=== PATIENT | male | born 1935 | race Caucasian/White ===

== ENCOUNTER 2019-02-28 09:26 | Emergency (ER) | payer MEDICARE, OTHER ==
[2019-02-28 10:12] VITALS: BP 149/79
--- NOTE | 2019-02-28 10:18 | ERPHSYRPT ---
- History of Present Illness Time Seen by Provider: 02/28/19 09:50 Source: patient Exam Limitations: no limitations Patient Subjective Stated Complaint: "cut to R arm" Triage Nursing Assessment: pt to ED states grinding wheel cut arm last night approx 1800. no pain. no bleeding noted at this time. pt applied antibiotic ointment last night and covered with bandage. pt ambulated back to room with no assist. placed in gown and into bed. AxOx3. communciates regularly. Physician History: 83 years old male presented to the ER with right forearm laceration got accidentally with a grinding wheel around 6 PM last night. There was mild bleeding initially but stopped after applying pressure. He applied antibiotic ointment and Band-Aid but still had some opening. There is mild pain initially but currently no pain bleeding or oozing. no difficulty movements of wrist/finger/hand.Tetanus shot almost 5 years ago. Occurred: yesterday (1800) Method of Injury: incised (with a grinding wheel) Quality: dullness Severity of Pain-Max: mild Severity of Pain-Current: none Allergies/Adverse Reactions: No Known Drug Allergies Allergy (Verified 02/28/19 10:12) Home Medications: Aspir 81 81 mg PO DAILY 02/13/12 [History] Celebrex 200 mg PO DAILY 02/13/12 [History] Flomax 0.4 MG 0.4 mg PO DAILY 02/13/12 [History] Levothyroxine Sodium 125 mg PO DAILY 02/13/12 [History] Metoprolol Tartrate 100 mg PO BID 02/13/12 [History] Nexium 40 mg PO DAILY 02/13/12 [History] Zetia 10 MG 10 mg PO DAILY 02/13/12 [History] Escitalopram Oxalate 10 mg [Lexapro 10 MG] 10 mg PO DAILY 09/24/14 [History] Nitroglycerin 0.4 mg Tablet [Nitrostat 0.4 MG Tablet] 0.4 mg SL UD PRN [History] Hx Tetanus, Diphtheria Vaccination/Date Given: No (pt states approx 5 yrs since last tetanus) Hx Influenza Vaccination/Date Given: Yes Hx Pneumococcal Vaccination/Date Given: No Immunizations Up to Date: No - Review of Systems Constitutional: No Symptoms Eyes: No Symptoms Ears, Nose, & Throat: No Symptoms Respiratory: No Symptoms Cardiac: No Symptoms Abdominal/Gastrointestinal: No Symptoms Musculoskeletal: Injury, Other Skin: Skin Lesions, Other Neurological: No Symptoms Psychological: No Symptoms Endocrine: No Symptoms Hematologic/Lymphatic: No Symptoms - Past Medical History Pertinent Past Medical History: Yes Neurological History: No Pertinent History ENT History: No Pertinent History Cardiac History: Other Respiratory History: No Pertinent History Endocrine Medical History: No Pertinent History Musculoskeletal History: No Pertinent History GI Medical History: Ulcer History: No Pertinent History Psycho-Social History: Anxiety Male Reproductive Disorders: No Pertinent History Other Medical History: pacemaker/difib - Past Surgical History Past Surgical History: Yes Gastrointestinal: Appendectomy, Cholecystectomy, Hernia Repair, Other Genitourinary: No Pertinent History Musculoskeletal: Other Male Surgical History: No Pertinent History Other Surgical History: pacemaker/defib placement - Social History Smoking Status: Never smoker Exposure to second hand smoke: No Drug Use: none Patient Lives Alone: No - Nursing Vital Signs Nursing Vital Signs: Initial Vital Signs Temperature 98.1 F 02/28/19 10:02 Pulse Rate 86 02/28/19 10:02 Respiratory Rate 20 02/28/19 10:02 Blood Pressure 149/79 02/28/19 10:02 O2 Sat by Pulse Oximetry 99 02/28/19 10:02 Pain Scale Pain Intensity 0 - Physical Exam General Appearance: no apparent distress Eyes, Ears, Nose, Throat Exam: normal ENT inspection Neck Exam: normal inspection, non-tender Cardiovascular/Respiratory Exam: normal breath sounds, regular rate/rhythm Back Exam: normal inspection Shoulder Exam: normal inspection Elbow/Forearm Exam: normal ROM, soft tissue tenderness, No bone tenderness Wrist Exam: normal inspection, non-tender, no evidence of injury, normal ROM, swelling (2cm laceration skin deep with no active bleed/ooze, edges scabbed. minimal tenderness with pressure sround the wound. intact distal NV) Hand Exam: normal inspection, non-tender, no evidence of injury Neuro/Tendon Exam: normal sensation Mental Status Exam: alert, oriented x 3, cooperative Skin Exam: normal color SpO2 Interpretation: normal SpO2: 99 O2 Delivery: Room Air Procedures - Laceration/Wound Repair Right Upper Distal Other Wound Location: lower arm Wound Length (cm): 2 Wound's Depth, Shape: superficial Wound Explored: no foreign body noted Irrigated: Yes Hibiclens Prep: Yes Wound Repaired With: Steri-strips Number of Sutures: 2 Layer Closure?: No Sterile Dressing Applied?: Yes Splint Applied?: No Sling Applied?: No - Course Nursing assessment & vital signs reviewed: Yes Ordered Tests: Active Orders 24 hr Category Date Time Status Wound Care STAT Care 02/28/19 10:12 Active - Progress Progress: improved, re-examined Progress Note: 02/28/19 10:22 it is almost 14 hours since hhe got laceration. Edges are already scabbing. We will not suture. Steri-Strips are applied. Discussed signs symptoms symptoms are worsening/infection/discharge needing to come to ER or outpatient followup which patient seems understanding. He is up-to-date with tetanus. Counseled pt/family regarding: diagnosis, need for follow-up - Departure Departure Disposition: Home Clinical Impression: Laceration of right forearm Qualifiers: Encounter type: initial encounter Qualified Code(s): S51.811A - Laceration without foreign body of right forearm, initial encounter Condition: Stable Critical Care Time: No Referrals: [facility] [Primary Care Provider] - Instructions: Laceration Repair With Glue (DC) Additional Instructions: keep it clean. Followup with primary care for evaluation in 2-3 days. Watch for signs of infection like redness discharge/swelling/fever chills etc. and return to the ER
[2019-02-28 10:58] VITALS: PULSE 88
[2019-02-28 11:04] VITALS: O2SAT 99
== END 2019-02-28 10:50 | disposition home or self-care (01) ==
LOC: ED 09:26
DX: S51.811A Laceration without foreign body of right forearm, initial encounter (principal); W31.89XA Contact with other specified machinery, initial encounter; Z79.899 Other long term (current) drug therapy
CPT/HCPCS: 12001; 99283

== ENCOUNTER 2021-09-06 21:00 | Emergency (ER) | payer MEDICARE, OTHER ==
[2021-09-06] MEDS ORDERED: XYLOCAINE 1% HCL 20 ML MDV IJ ONE (21:07)
[2021-09-06] MEDS ORDERED: Adacel Vial IM ONE ×2 (21:07→21:28)
--- NOTE | 2021-09-06 21:07 | ERPHSYRPT ---
- History of Present Illness Time Seen by Provider: 09/06/21 21:07 Source: patient Exam Limitations: no limitations Physician History: This is a right-handed 86-year-old white male patient has a history of gastroesophageal reflux disease, hypothyroidism, elevated cholesterol and hypertension and tripped over a post in his yard landing on his right hand and suffering laceration to the ulnar aspect of the right palm. He has full range of motion and has full sensation. His tetanus status is not up-to-date. Occurred: just prior to arrival Method of Injury: fell Severity of Pain-Max: mild Severity of Pain-Current: mild Extremities Pain Location: hand: right Modifying Factors: Improves With: nothing Associated Symptoms: none Allergies/Adverse Reactions: No Known Drug Allergies Allergy (Verified 09/06/21 21:17) Home Medications: Aspir 81 81 mg PO DAILY 02/13/12 [History] Celebrex 200 mg PO DAILY 02/13/12 [History] Flomax 0.4 MG 0.4 mg PO DAILY 02/13/12 [History] Levothyroxine Sodium 125 mg PO DAILY 02/13/12 [History] Metoprolol Tartrate 100 mg PO BID 02/13/12 [History] Nexium 40 mg PO DAILY 02/13/12 [History] Zetia 10 MG 10 mg PO DAILY 02/13/12 [History] Escitalopram Oxalate [Lexapro 10 MG] 10 mg PO DAILY 09/24/14 [History] Nitroglycerin 0.4 mg Tablet [Nitrostat 0.4 MG Tablet] 0.4 mg SL UD PRN 09/24/14 [History] Hx Tetanus, Diphtheria Vaccination/Date Given: No (pt states approx 5 yrs since last tetanus) Hx Influenza Vaccination/Date Given: Yes Hx Pneumococcal Vaccination/Date Given: No Travel Risk - International Travel Have you traveled outside of the country in past 3 weeks: No - Coronavirus Screening Are you exhibiting any of the following symptoms?: No Close contact with a COVID-19 positive Pt in past 14-21 Days: No - Review of Systems Constitutional: No Symptoms Eyes: No Symptoms Ears, Nose, & Throat: No Symptoms Respiratory: No Symptoms Cardiac: No Symptoms Abdominal/Gastrointestinal: No Symptoms Genitourinary Symptoms: No Symptoms Musculoskeletal: Injury (Right hand) Skin: Other (Laceration right hand) Neurological: No Symptoms Psychological: No Symptoms Endocrine: No Symptoms Hematologic/Lymphatic: No Symptoms Immunological/Allergic: No Symptoms All Other Systems: Reviewed and Negative - Past Medical History Pertinent Past Medical History: Yes Neurological History: No Pertinent History ENT History: No Pertinent History Cardiac History: Arrhythmia, High Cholesterol, Hypertension, Other Respiratory History: COPD Endocrine Medical History: Hypothyroidism Musculoskeletal History: No Pertinent History GI Medical History: Ulcer History: No Pertinent History Psycho-Social History: Anxiety Male Reproductive Disorders: No Pertinent History Other Medical History: ANXIETY. SX HX: ARTHROSCOPIC SURGERY RIGHT KNEE, HERNIA REPAIRS SUNI INGUINAL, CHOLECYSTECTOMY, APPENDECTOMY, RC REPAIR RIGHT SHOULDER, GASTRIC ULCER REPAIR, "REROUTED" INTESTINES, CERVICAL FUSION, SURGERY ON BOTH ELBOWS. - Past Surgical History Past Surgical History: Yes Gastrointestinal: Appendectomy, Cholecystectomy, Hernia Repair, Other Genitourinary: No Pertinent History Musculoskeletal: Other Male Surgical History: No Pertinent History Other Surgical History: pacemaker/defib placement - Social History Smoking Status: Never smoker Exposure to second hand smoke: No Drug Use: none Patient Lives Alone: No - Nursing Vital Signs Nursing Vital Signs: Initial Vital Signs Temperature 98.1 F 09/06/21 21:07 Pulse Rate 71 09/06/21 21:07 Respiratory Rate 16 09/06/21 21:07 Blood Pressure 161/76 09/06/21 21:07 O2 Sat by Pulse Oximetry 97 09/06/21 21:07 Pain Scale Pain Intensity 3 - Physical Exam General Appearance: no apparent distress, alert, anxiety Eyes, Ears, Nose, Throat Exam: normal ENT inspection, moist mucous membranes Neck Exam: normal inspection, non-tender, supple, full range of motion Cardiovascular/Respiratory Exam: chest non-tender, no respiratory distress Abdominal Exam: non-tender Back Exam: normal inspection, normal range of motion, No CVA tenderness, No vertebral tenderness Shoulder Exam: normal inspection, non-tender, no evidence of injury, normal ROM Elbow/Forearm Exam: normal inspection, non-tender, no evidence of injury, normal ROM Wrist Exam: normal inspection, non-tender, no evidence of injury, normal ROM Hand Exam: normal ROM, laceration (Approximately 3 cm semicircular laceration/flap with full range of motion. No evidence of tendon injury. There is no evidence of foreign body. The patient is neurovascularly intact.) Neuro/Tendon Exam: normal sensation, normal motor functions, normal tendon functions, responds to pain, no evidence tendon injury Mental Status Exam: alert, oriented x 3, cooperative Skin Exam: normal color, warm, dry SpO2 Interpretation: normal O2 Delivery: Room Air Procedures - Laceration/Wound Repair Right Hand Time of Procedure: 21:40 Wound Location: Right, hand Wound Length (cm): 3 Wound's Depth, Shape: superficial, flap (Curvilinear) Wound Explored: clean (No foreign body noted. Exam was performed of bloodless field to the base) Irrigated: Yes Hibiclens Prep: Yes Anesthesia: 1% Lidocaine Volume Anesthetic (ccs): 7 Wound Repaired With: sutures Suture Size/Type: 4-0, prolene Number of Sutures: 6 Layer Closure?: No - Course Nursing assessment & vital signs reviewed: Yes Ordered Tests: Active Orders 24 hr Category Date Time Status Wound Care STAT Care 09/06/21 21:07 Active Medication Summary Discontinued Medications Generic Name Dose Route Start Last Admin Trade Name Freq PRN Reason Stop Dose Admin Bacitracin Zinc 0.9 each 09/06/21 21:08 09/06/21 21:40 Bacitracin Packet 1 Each Pckt TP 09/06/21 21:09 0.9 each STAT ONE Administration Bacitracin Zinc Confirm 09/06/21 21:40 Bacitracin Packet 1 Each Pckt Administered 09/06/21 21:41 Dose 1 each .ROUTE .STK-MED ONE Cephalexin HCl 500 mg 09/06/21 21:29 09/06/21 21:31 Cephalexin Mh500 Mg Capsule PO 09/06/21 21:30 500 mg STAT ONE Administration Cephalexin HCl Confirm 09/06/21 21:30 Cephalexin Mh500 Mg Capsule Administered 09/06/21 21:31 Dose 500 mg .ROUTE .STK-MED ONE Diphtheria/Tetanus/Acell Pertussis 0.5 ml 09/06/21 21:07 09/06/21 21:29 Tdap --Diph,Pertuss(Acell),Tet Vac/Pf 0.5 Ml Vial IM 09/06/21 21:08 0.5 ml .ONCE ONE Administration Diphtheria/Tetanus/Acell Pertussis Confirm 09/06/21 21:28 Tdap --Diph,Pertuss(Acell),Tet Vac/Pf 0.5 Ml Vial Administered 06/01/22 21:29 Dose 0.5 ml IM .STK-MED ONE Lidocaine HCl 5 ml 09/06/21 21:07 09/06/21 21:27 Lidocaine Hcl 1% 20 Ml Mdv 20 Ml Ml IJ 09/06/21 21:08 5 ml STAT ONE Administration Lidocaine HCl Confirm 09/06/21 21:15 Lidocaine Hcl 1% 20 Ml Mdv 20 Ml Ml Administered 09/06/21 21:16 Dose 5 ml .ROUTE .STK-MED ONE - Progress Progress: improved Counseled pt/family regarding: diagnosis, need for follow-up - Departure Departure Disposition: Home Clinical Impression: Laceration of right hand Condition: Stable Critical Care Time: No Referrals: [facility] [Primary Care Provider] - Follow up/PCP as directed Additional Instructions: Keep current pressure dressing in place until tomorrow evening. Tomorrow evening, may remove dressing and wash the site daily with soap and water. Blot dry use a hairdryer to dry the repair site. Reapply antibiotic ointment of choice to the repair line and cover with a bandage. Suture removal in 8 to 10 days. Use Tylenol and ibuprofen for pain control. Take your antibiotics as prescribed. Prescriptions: Cephalexin Mh 500 mg [Keflex 500 mg] 500 mg PO TID #15 cap
[2021-09-06] MEDS ORDERED: BACIGUENT PACKET TP ONE (21:08)
[2021-09-06] MEDS ORDERED: XYLOCAINE 1% HCL 20 ML MDV ONE (21:15)
[2021-09-06] MEDS ORDERED: KEFLEX 500 MG PO ONE (21:29)
[2021-09-06] MEDS ORDERED: KEFLEX 500 MG ONE (21:30)
[2021-09-06] MEDS ORDERED: BACIGUENT PACKET ONE (21:40)
[2021-09-06] MEDS ORDERED: NORCO 5/325 MG PO ONE (21:57)
[2021-09-06] MEDS ORDERED: NORCO 5/325 MG ONE (21:59)
[2021-09-06 22:04] VITALS: BP 164/77; PULSE 70; O2SAT 99
== END 2021-09-06 22:07 | disposition home or self-care (01) ==
LOC: ED 21:00
DX: S61.411A Laceration without foreign body of right hand, initial encounter (principal); W01.0XXA Fall on same level from slipping, tripping and stumbling without subsequent striking against object, initial encounter; Y92.007 Garden or yard of unspecified non-institutional (private) residence as the place of occurrence of the external cause; E78.5 Hyperlipidemia, unspecified; I10 Essential (primary) hypertension; J44.9 Chronic obstructive pulmonary disease, unspecified; Z79.899 Other long term (current) drug therapy
CPT/HCPCS: 12002; 90471; 90715; 96372; 99284; A9270-GY

== ENCOUNTER 2024-07-07 11:18 | Emergency (ER) | payer MEDICARE, OTHER ==
--- NOTE | 2024-07-07 11:22 | ERPHSYRPT ---
- History of Present Illness Time Seen by Provider: 07/07/24 11:21 Source: patient, family Exam Limitations: no limitations Physician History: This is an 88-year-old white male patient who was brought directly over to our emergency department from the pulmonology clinic visit here at the hospital secondary to a near syncopal episode. Patient was being evaluated by the liquid natural gas plant operator to discuss pulmonary nodules that were present. Patient had a near syncopal episode when they took his blood pressure his systolic blood pressure was in the 80s. Patient denies chest pain. Patient denies shortness of breath. Patient states that he frequently has these "spells". He currently denies having a headache. He has not had any visual changes. Yesterday, his son provided additional, independent history, the patient underwent battery replacement of his pacemaker/defibrillator. Patient has a history of peptic ulcer disease and this was surgically dealt with in the past. He has not been coughing up any coffee-ground emesis or bright red blood and he has not passed dark tarry stools or bright red blood rectally. He has no abdominal pain. He does see tar heel Dr. Lieberman and has a jewel bearing turner, Dr. Mei. Patient has a history of hypothyroidism, hyperlipidemia, COPD, prostate issues, depression, arrhythmia and coronary artery disease. Timing/Duration: today Severity: mild Associated Symptoms: syncope (Patient had a near syncopal episode at his liquid natural gas plant operator office but has no symptoms now.) Allergies/Adverse Reactions: No Known Drug Allergies Allergy (Verified 07/07/24 11:30) Home Medications: Albuterol Sulfate [Albuterol Sulfate Hfa] 2 puff PO Q6H PRN 07/07/24 [History] Bisoprolol Fumarate 2.5 mg PO DAILY 07/07/24 [History] Cetirizine HCl [Zyrtec] 10 mg PO DAILY 07/07/24 [History] Ezetimibe 10 mg [Zetia 10 MG] 10 mg PO HS 07/07/24 [History] Isosorbide Mononitrate 30 mg [Imdur 30 MG] 30 mg PO DAILY 07/07/24 [History] Levothyroxine Sodium 88 Mcg [Synthroid 88 Mcg] 88 mcg PO DAILY 07/07/24 [History] Rosuvastatin Calcium 10 mg PO DAILY 07/07/24 [History] Sertraline HCl [Zoloft] 100 mg PO DAILY 07/07/24 [History] Sucralfate 1 gm [Carafate 1 GM] 1 g PO DAILY 07/07/24 [History] Tamsulosin HCl 0.4 mg [Flomax 0.4 MG] 0.4 mg PO DAILY 07/07/24 [History] dilTIAZem HCL [Diltiazem ER] 120 mg PO DAILY 07/07/24 [History] Hx Tetanus, Diphtheria Vaccination/Date Given: No (pt states approx 5 yrs since last tetanus) Hx Influenza Vaccination/Date Given: Yes Hx Pneumococcal Vaccination/Date Given: No Travel Risk - International Travel Have you traveled outside of the country in past 3 weeks: No - Emerging Infectious Disease Are you exhibiting symptoms associated with any current EIDs: No - Review of Systems Constitutional: No Symptoms Eyes: No Symptoms Ears, Nose, & Throat: No Symptoms Respiratory: No Symptoms Cardiac: No Symptoms Abdominal/Gastrointestinal: No Symptoms Genitourinary Symptoms: No Symptoms Musculoskeletal: No Symptoms Skin: No Symptoms Neurological: No Symptoms Psychological: No Symptoms Endocrine: No Symptoms Hematologic/Lymphatic: No Symptoms Immunological/Allergic: No Symptoms All Other Systems: Reviewed and Negative - Past Medical History Pertinent Past Medical History: Yes Neurological History: No Pertinent History ENT History: No Pertinent History Cardiac History: Arrhythmia, Other Respiratory History: COPD Endocrine Medical History: Hypothyroidism Musculoskeletal History: No Pertinent History GI Medical History: Ulcer History: No Pertinent History Psycho-Social History: Anxiety Male Reproductive Disorders: No Pertinent History Other Medical History: NECK FUSION - Past Surgical History Past Surgical History: Yes Cardiac: Internal Defibrillator, Pacemaker Gastrointestinal: Appendectomy, Cholecystectomy, Hernia Repair, Other Genitourinary: No Pertinent History Musculoskeletal: Other Male Surgical History: No Pertinent History Other Surgical History: pacemaker/defib placement. right knee. right shoulder. neck fusion - Social History Smoking Status: Never smoker Exposure to second hand smoke: No Drug Use: none - Nursing Vital Signs Nursing Vital Signs: Initial Vital Signs Temperature 97.6 F 07/07/24 11:18 Pain Scale Pain Intensity 0 - Physical Exam General Appearance: no apparent distress, alert Eye Exam: PERRL/EOMI, eyes nml inspection Ears, Nose, Throat Exam: normal ENT inspection, moist mucous membranes Neck Exam: normal inspection, non-tender, supple, full range of motion Respiratory Exam: normal breath sounds, lungs clear, airway intact, No chest tenderness, No respiratory distress Cardiovascular Exam: regular rate/rhythm, normal heart sounds, normal peripheral pulses Gastrointestinal/Abdomen Exam: soft, normal bowel sounds, No tenderness Rectal Exam: not done Back Exam: normal inspection, normal range of motion, No CVA tenderness, No vertebral tenderness Neurologic Exam: alert, oriented x 3, cooperative, closing machine operator II-XII nml as tested, normal mood/affect, nml cerebellar function, nml station & gait, sensation nml Skin Exam: normal color, warm, dry Lymphatic Exam: No adenopathy SpO2 Interpretation: normal O2 Delivery: Room Air - Course Nursing assessment & vital signs reviewed: Yes EKG Interpreted by Me: RATE (71), NORMAL AXIS, NORMAL QRS, Other (There is prolonged NV interval. QTc is 444. There is no evidence of acute ischemia on today's twelve-lead EKG.) Ordered Tests: Active Orders 24 hr Category Date Time Status EKG-ER Only STAT Care 07/07/24 11:26 Active IV Insertion STAT Care 07/07/24 11:26 Active Pulse Oximetry (ED) STAT Care 07/07/24 11:26 Active HEAD WITHOUT CONTRAST [CT] Stat Exams 07/07/24 11:27 Completed CBC W DIFF Stat Lab 07/07/24 11:40 Completed CMP Stat Lab 07/07/24 11:40 Completed MAGNESIUM Stat Lab 07/07/24 11:40 Completed PROTIME WITH INR Stat Lab 07/07/24 11:40 Completed TROPONIN Q4H Lab 07/07/24 11:40 Completed TROPONIN Q4H Lab 07/07/24 15:30 Ordered TROPONIN Q4H Lab 07/07/24 19:30 Ordered UA W/RFX UR CULTURE Stat Lab 07/07/24 14:07 Completed Medication Summary Generic Name Dose Route Start Last Admin Trade Name Freq PRN Reason Stop Dose Admin Sodium Chloride 1,000 mls @ 100 mls/hr 07/07/24 11:30 07/07/24 13:37 Sodium Chloride 0.9% 1000 Ml IV 08/06/24 11:29 Infused .Q10H JOHAN Infusion Lab/Rad Data: Laboratory Result Diagrams 07/07/24 11:40 07/07/24 11:40 Laboratory Results 07/07/24 07/07/24 07/07/24 Range/Units 14:07 11:40 11:40 WBC (4.23-9.07) x10^3/uL RBC (4.63-6.08) x10^6/uL Hgb (13.7-17.5) g/dL Hct (40.1-51.0) % MCV (79.0-92.2) fL MCH (25.7-32.2) pg MCHC (32.3-36.5) g/dL RDW (11.6-14.4) % Plt Count (163-337) x10^3/uL MPV (9.4-12.4) fL Gran % (34.0-67.9) % Immature Gran % (Auto) (0.001-0.429) % Nucleat RBC Rel Count (0.00-0.2) % Eos # (Auto) (0.04-0.54) x10^3/uL Immature Gran # (Auto) (0.001-0.031) x10^3u/L Absolute Lymphs (auto) (1.32-3.57) x10^3/uL Absolute Monos (auto) (0.30-0.82) x10^3/uL Absolute Nucleated RBC (0.00-0.012) x10^3u/L Lymphocytes % (21.8-53.1) % Monocytes % (5.3-12.2) % Eosinophils % (0.8-7.0) % Basophils % (0.2-1.2) % Absolute Granulocytes (1.78-5.38) x10^3/uL Basophils # (0.01-0.08) x10^3/uL PT 11.2 (9.4-12.5) SECONDS INR 1.03 (0.8-3.0) Sodium (135-145) mmol/L Potassium (3.5-5.1) mmol/L Chloride (98-107) mmol/L Carbon Dioxide (22-30) mmol/L Anion Gap (5-15) MEQ/L BUN (9-20) mg/dL Creatinine (0.66-1.25) mg/dL Estimated GFR ML/MIN Glucose (74-106) mg/dL Calcium (8.4-10.2) mg/dL Magnesium (1.6-2.3) mg/dL Total Bilirubin (0.2-1.3) mg/dL AST (17-59) U/L ALT (0-50) U/L Alkaline Phosphatase (38-126) U/L Troponin I < 0.012 (0.000-0.033) ng/mL Serum Total Protein (6.3-8.2) g/dL Albumin (3.5-5.0) g/dL Urine Color Yellow (Yellow) Urine Appearance Clear (Clear) Urine pH 7.0 (4.6-8.0) Ur Specific [place] 1.015 (1.005-1.030) Urine Protein Negative (Negative) Urine Glucose (UA) Negative (Negative) mg/dL Urine Ketones Negative (Negative) Urine Blood Negative (Negative) Urine Nitrite Negative (Negative) Urine Bilirubin Negative (Negative) Urine Urobilinogen 1.0 A (0.2) mg/dL Ur Leukocyte Esterase Negative (Negative) U Hyaline Cast (Auto) NONE SEEN (0-2) /LPF Urine Microscopic RBC 3-5 (0-5) /HPF Urine Microscopic WBC 0-2 (0-5) /HPF Ur Epithelial Cells None Seen (None Seen) /HPF Urine Bacteria None Seen (None Seen) /HPF Urine Culture Reflexed NO (NO) 07/07/24 07/07/24 Range/Units 11:40 11:40 WBC 9.5 H (4.23-9.07) x10^3/uL RBC 3.06 L (4.63-6.08) x10^6/uL Hgb 9.9 L (13.7-17.5) g/dL Hct 30.9 L (40.1-51.0) % MCV 101.0 H (79.0-92.2) fL MCH 32.4 H (25.7-32.2) pg MCHC 32.0 L (32.3-36.5) g/dL RDW 13.9 (11.6-14.4) % Plt Count 255 (163-337) x10^3/uL MPV 9.5 (9.4-12.4) fL Gran % 77.6 H (34.0-67.9) % Immature Gran % (Auto) 0.7 H (0.001-0.429) % Nucleat RBC Rel Count 0.0 (0.00-0.2) % Eos # (Auto) 0.06 (0.04-0.54) x10^3/uL Immature Gran # (Auto) 0.07 H (0.001-0.031) x10^3u/L Absolute Lymphs (auto) 0.93 L (1.32-3.57) x10^3/uL Absolute Monos (auto) 1.04 H (0.30-0.82) x10^3/uL Absolute Nucleated RBC 0.00 (0.00-0.012) x10^3u/L Lymphocytes % 9.8 L (21.8-53.1) % Monocytes % 11.0 (5.3-12.2) % Eosinophils % 0.6 L (0.8-7.0) % Basophils % 0.3 (0.2-1.2) % Absolute Granulocytes 7.33 H (1.78-5.38) x10^3/uL Basophils # 0.03 (0.01-0.08) x10^3/uL PT (9.4-12.5) SECONDS INR (0.8-3.0) Sodium 137 (135-145) mmol/L Potassium 4.0 (3.5-5.1) mmol/L Chloride 105 (98-107) mmol/L Carbon Dioxide 25 (22-30) mmol/L Anion Gap 10.6 (5-15) MEQ/L BUN 23 H (9-20) mg/dL Creatinine 1.12 (0.66-1.25) mg/dL Estimated GFR 63.2 ML/MIN Glucose 128 H (74-106) mg/dL Calcium 8.6 (8.4-10.2) mg/dL Magnesium 1.8 (1.6-2.3) mg/dL Total Bilirubin 0.40 (0.2-1.3) mg/dL AST 32 (17-59) U/L ALT 35 (0-50) U/L Alkaline Phosphatase 98 (38-126) U/L Troponin I (0.000-0.033) ng/mL Serum Total Protein 5.6 L (6.3-8.2) g/dL Albumin 3.5 (3.5-5.0) g/dL Urine Color (Yellow) Urine Appearance (Clear) Urine pH (4.6-8.0) Ur Specific [place] (1.005-1.030) Urine Protein (Negative) Urine Glucose (UA) (Negative) mg/dL Urine Ketones (Negative) Urine Blood (Negative) Urine Nitrite (Negative) Urine Bilirubin (Negative) Urine Urobilinogen (0.2) mg/dL Ur Leukocyte Esterase (Negative) U Hyaline Cast (Auto) (0-2) /LPF Urine Microscopic RBC (0-5) /HPF Urine Microscopic WBC (0-5) /HPF Ur Epithelial Cells (None Seen) /HPF Urine Bacteria (None Seen) /HPF Urine Culture Reflexed (NO) - Progress Progress: improved Progress Note: 07/07/24 11:36 My medical decision making and the assignment of at least moderate complexity was discussed in detail with the patient. The workup in this patient includes placement of intravenous line, infusion of low rate crystalloid until the GFR returns, CBC, CMP, magnesium level, BNP, twelve-lead EKG, troponin level, CT scan of the head without contrast, urinalysis. Differential diagnosis includes was not limited to syncopal episode secondary to recent change in the pacemaker battery, anemia, electrolyte abnormalities, brief arrhythmia, myocardial infarction, electrolyte abnormalities, dehydration, urinary tract infection 07/07/24 12:34 I reexamined the patient. The patient has no chest pain. He is not short of breath. He does not feel dizzy or weak. Patient's systolic blood pressure is 123 mmHg. Overall, he states he is feeling better. The CT scan of the head was interpreted by the radiologist and I reviewed the impression. The impression states normal head without contrast. 07/07/24 12:35 I interpreted the laboratory data results except for the urinalysis which is pending. The patient has chronic anemia. Looking back over the last several hemoglobin levels, the patient's current level of 9.9 is within the range of 9.5-10.9 hemoglobin levels. There are no emergent, chronic medical issues. We will wait for the urinalysis. 07/07/24 14:50 I interpreted the urinalysis. There is no evidence of any dehydration or urinary tract infection. Counseled pt/family regarding: lab results, diagnosis, rad results Medical Desision Making - Independent Historian Additional History obtained from: Family - Diagnostic Testing Diagnostic test were ordered, analyzed, and reviewed by me: Yes Radiological Interpretation: Reviewed by me, Teleradiologist Report - Risk of complications Low Risk: Low risk of morbidity from additional dx testing or treatment - Departure Departure Disposition: Home Clinical Impression: Near syncope Condition: Stable Critical Care Time: No Referrals: [facility] [Primary Care Provider] - Follow up/PCP as directed Additional Instructions: Drink plenty of fluids. Continue your medications as prescribed. Call your primary care provider today, 07/07/2024, to make arrangements for follow-up appointment for further evaluation management.
[2024-07-07 11:34] VITALS: TEMP 97.6
[2024-07-07] MEDS ORDERED: Sodium Chloride 0.9% 1000 ML 1,000 ML ONE (11:46)
[2024-07-07] MEDS: Sodium Chloride 0.9% 1000 ML 1,000 ML IV SCH (11:50)
[2024-07-07 11:51] LABS: Absolute Neutrophil Ct (ANC) 7.33 x10^3/uL (1.78-5.38); BASOPHIL % 0.3 % (0.2-1.2); Basophil (Absolute #) 0.03 x10^3/uL (0.01-0.08); Eosinophil % 0.6 % (0.8-7.0); Eosinophil (Absolute #) 0.06 x10^3/uL (0.04-0.54); Hematocrit 30.9 % (40.1-51.0); Hemoglobin 9.9 g/dL (13.7-17.5); IMMATURE GRAN # 0.07 x10^3u/L (0.001-0.031); IMMATURE GRAN % 0.7 % (0.001-0.429); Lymphocyte (Absolute #) 0.93 x10^3/uL (1.32-3.57); Lymphocytes % 9.8 % (21.8-53.1); Mean Corpuscular Hemoglobin 32.4 pg (25.7-32.2); Mean Platelet Volume 9.5 fL (9.4-12.4); Monocyte (Absolute #) 1.04 x10^3/uL (0.30-0.82); Neutrophil % 77.6 % (34.0-67.9); Platelet Count 255 x10^3/uL (163-337); Red Blood Count 3.06 x10^6/uL (4.63-6.08); Red Cell Distribution Width 13.9 % (11.6-14.4); White Blood Count 9.5 x10^3/uL (4.23-9.07)
[2024-07-07 12:01] LABS: INR 1.03 (0.8-3.0); PROTIME 11.2 SECONDS (9.4-12.5)
[2024-07-07 12:04] LABS: Creatinine 1 1.12 mg/dL (0.66-1.25); EST GLOMERULAR FILTRATION RATE 63.2 ML/MIN
[2024-07-07 12:05] LABS: ALBUMIN 3.5 g/dL (3.5-5.0); ANION GAP 10.6 MEQ/L (5-15); BILIRUBIN,TOTAL 0.4 mg/dL (0.2-1.3); Calcium 8.6 mg/dL (8.4-10.2); MAGNESIUM 1.8 mg/dL (1.6-2.3); Total Protein 5.6 g/dL (6.3-8.2)
--- NOTE | 2024-07-07 12:30 | XRAY ---
Indication: Near syncopal episode. Multiple contiguous axial images obtained through the head without contrast. Comparison: None Normal appearing brain parenchyma, ventricles, and bony calvarium for patient's age. Visualized paranasal sinuses and mastoid air cells are clear. Impression: Normal CT head without contrast exam.
[2024-07-07 14:27] LABS: Appearance Clear (Clear); Bacteria None Seen /HPF (None Seen); Bilirubin Negative (Negative); Blood Negative (Negative); Epithelial Cells None Seen /HPF (None Seen); Glucose, Urine Negative (Negative); Hyaline Casts NONE SEEN /LPF (0-2); Ketones Negative (Negative); Leukocyte Esterase Negative (Negative); Nitrite Negative (Negative); Protein,Urine Dip Negative (Negative); Specific Gravity 1.015 (1.005-1.030); WBC 0-2 /HPF (0-5)
[2024-07-07 14:54] VITALS: BP 119/64; PULSE 70; RESP 21; O2SAT 96
== END 2024-07-07 15:01 | disposition home or self-care (01) ==
LOC: ED 11:18
DX: R55 Syncope and collapse (principal); E78.5 Hyperlipidemia, unspecified; Z79.899 Other long term (current) drug therapy
CPT/HCPCS: 36415; 70450; 80053; 81001; 83735; 84484; 85025; 85610; 93005; 94760; 96360; 96361; 99285